=== PATIENT | female | born 1980 | race Caucasian/White ===

== ENCOUNTER 2016-04-18 01:57 | Inpatient (IN) | payer BC, MEDICAID ==
[2016-04-18 03:43] LABS: Hematocrit 30 % (35-47); Hemoglobin 9.7 g/dl (12.0-16.0); Mean Corpuscular HGB Conc 32 g/dl (31-36); Mean Corpuscular Hemoglobin 25 pg (27-31); Mean Corpuscular Volume 78 fL (80-97); Mean Platelet Volume 9 um3 (7.4-10.4); Red Blood Count 3.86 10^6/ul (4.0-5.4); Red Cell Distribution Width 16 % (10.5-15); White Blood Count 10.8 10^3/ul (3.5-10.8)
[2016-04-18 04:04] LABS: Albumin 2.5 g/dL (3.2-5.2); BUN/Creatinine Ratio 16.5 (8-20); Calcium 7.9 mg/dL (8.6-10.3); EGFR African American 106.5 (>60); EGFR Non-African American 82.8 (>60); Globulin 2.9 g/dL (2-4); Potassium 3.8 mmol/L (3.5-5.0); Total Bilirubin 0.3 mg/dL (0.2-1.0); Total Protein 5.4 g/dL (6.4-8.9); Uric Acid 6.8 mg/dL (2.3-6.6)
[2016-04-18] MEDS ORDERED: Labetalol IV* 5 MG/ML 20 ML VIAL ONE (04:43)
[2016-04-18] MEDS ORDERED: Labetalol IV* 5 MG/ML 20 ML VIAL IV PUSH ONE (05:00)
[2016-04-18] MEDS ORDERED: Magnesium Sulf 4 GM/100 ML IV* 4,000 MG/100 ML BAG IVPB ONE (05:14)
[2016-04-18] MEDS ORDERED: OBEPIDURAL* 250 ML ONE (05:17)
[2016-04-18] MEDS ORDERED: MAGNESIUM SULFATE ONE (05:17)
[2016-04-18] MEDS ORDERED: Famotidine TAB* 20 MG PO PRN (05:58)
[2016-04-18] MEDS ORDERED: Sodium Citrate/Citric Acid* 15 ML UDC PO PRN (05:58)
[2016-04-18] MEDS ORDERED: Phenylephrine IV* 40 MCG/ML 10 ML SYRINGE IV PUSH PRN ×2 (05:58)
[2016-04-18] MEDS ORDERED: EPHEDrine (Pressors)* 50 MG/ML VIAL IV PUSH PRN ×2 (05:58)
[2016-04-18] MEDS ORDERED: OBEPIDURAL* 250 ML EPIDURAL SCH (06:00)
[2016-04-18] MEDS ORDERED: Magnesium Sulfate OB PREMIX* 40 GM/1,000 ML BAG IVPB SCH (06:00)
[2016-04-18] MEDS ORDERED: Albuterol HFA INHALER* 8 gm MDI INH PRN (09:48)
[2016-04-18] MEDS ORDERED: Ondansetron INJ* 2 MG/ML VIAL IV ONE ×2 (11:20→21:00)
[2016-04-18] MEDS ORDERED: Ondansetron INJ* 2 MG/ML VIAL ONE (11:23)
[2016-04-18] MEDS ORDERED: Oxytocin in LR* 20 UNITS/1,000 ML BAG IVPB SCH ×2 (15:00→21:00)
[2016-04-18] MEDS ORDERED: oxyCODONE/Acetamin 5/325 MG* TAB PO PRN (20:45)
[2016-04-18] MEDS ORDERED: Witch Hazel PAD* JAR TOPICAL PRN (20:45)
[2016-04-18] MEDS ORDERED: Ibuprofen TAB* 600 MG PO PRN (20:45)
[2016-04-18] MEDS ORDERED: Dibucaine 1% 28.35 GM TUBE PR PRN (20:45)
[2016-04-18] MEDS ORDERED: Glycerin ADULT SUPP PR PRN (20:45)
[2016-04-18] MEDS ORDERED: Tetan/Diph/Pertus SYR(Tdap)* 0.5 ML SYR(BOOSTRIX) use SYR IM ONE (20:45)
[2016-04-18] MEDS ORDERED: Acetaminophen TAB* 325 MG PO PRN (20:45)
[2016-04-18] MEDS ORDERED: Magnesium Sulfate 2 GM IV* 2 GM/50 ML BAG IVPB ONE (20:54)
[2016-04-18] MEDS ORDERED: LEVETIRACETAM 250 MG PO SCH (21:00)
[2016-04-18] MEDS: Ibuprofen ADULT LIQ* 600 MG/30 ML UDC PO PRN (22:09)
[2016-04-19] MEDS: Simethicone TAB* 80 MG TAB.CHEW PO SCH ×2 (00:19→09:22)
[2016-04-19] MEDS: levETIRAcetam IV* 1,000 MG in NS 0.9% 100 ML* 100 ML IVPB SCH ×2 (00:43→11:34)
[2016-04-19] MEDS: Docusate CAP* 100 MG PO SCH ×4 (00:56→21:00)
[2016-04-19 07:47] LABS: Hematocrit 28 % (35-47); Hemoglobin 8.9 g/dl (12.0-16.0); Mean Corpuscular HGB Conc 32 g/dl (31-36); Mean Corpuscular Hemoglobin 25 pg (27-31); Mean Corpuscular Volume 79 fL (80-97); Mean Platelet Volume 9 um3 (7.4-10.4); Red Cell Distribution Width 16 % (10.5-15); White Blood Count 16.7 10^3/ul (3.5-10.8)
[2016-04-19] MEDS ORDERED: Magnesium Sulfate OB PREMIX* 40 GM/1,000 ML BAG IVPB SCH (09:04)
[2016-04-19] MEDS: PTO: Budesonide/Formote 160/4.5(NF) MDI INH SCH ×2 (09:21→21:00)
[2016-04-19] MEDS: Ferrous Gluconate TAB* 324 MG TAB PO SCH ×2 (09:22→21:00)
[2016-04-19] MEDS: MONTELUKAST SODIUM 10 MG PO SCH (09:22)
[2016-04-19] MEDS ORDERED: Metoclopramide IV* 5 MG/ML 2 ML VIAL IV PRN (14:01)
[2016-04-19] MEDS: Ibuprofen ADULT LIQ* 600 MG/30 ML UDC PO PRN (21:33)
[2016-04-19] MEDS ORDERED: NS 0.9% 100 ML* 100 ML ONE (23:16)
[2016-04-20] MEDS: levETIRAcetam IV* 1,000 MG in NS 0.9% 100 ML* 100 ML IVPB SCH ×3 (00:14→10:16)
[2016-04-20 07:26] VITALS: BP 126/80
[2016-04-20] MEDS: Ibuprofen ADULT LIQ* 600 MG/30 ML UDC PO PRN (07:45)
[2016-04-20] MEDS: Docusate CAP* 100 MG PO SCH (08:50)
[2016-04-20] MEDS: Ferrous Gluconate TAB* 324 MG TAB PO SCH ×2 (08:50→09:00)
[2016-04-20] MEDS: MONTELUKAST SODIUM 10 MG PO SCH (08:51)
[2016-04-20] MEDS: PTO: Budesonide/Formote 160/4.5(NF) MDI INH SCH (09:00)
[2016-04-20] MEDS ORDERED: Hydrocortisone 1% CREAM* 30 GM TUBE TOPICAL SCH (13:00)
== END 2016-04-20 14:52 | disposition home or self-care (01) | DRG 560 ==
LOC: MCHOBOUT 01:57 → MCHOB 04:45
PROVIDERS: ADMIT Obstetrics & Gynecology; ATTEND Obstetrics & Gynecology
PROC: 10907ZC Drainage of Amniotic Fluid, Therapeutic from Products of Conception, Via Natural or Artificial Opening (ICD-10-PCS; principal; 2016-04-18)
PROC: 10E0XZZ Delivery of Products of Conception, External Approach (ICD-10-PCS; 2016-04-18)
PROC: 0KQM0ZZ Repair Perineum Muscle, Open Approach (ICD-10-PCS; 2016-04-18)
DX: O14.13 Severe pre-eclampsia, third trimester (principal); O30.043 Twin pregnancy, dichorionic/diamniotic, third trimester; O70.1 Second degree perineal laceration during delivery; O09.523 Supervision of elderly multigravida, third trimester; O99.513 Diseases of the respiratory system complicating pregnancy, third trimester; J45.909 Unspecified asthma, uncomplicated; O32.8XX1 Maternal care for other malpresentation of fetus, fetus 1; Z37.2 Twins, both liveborn; Z3A.34 34 weeks gestation of pregnancy
CPT/HCPCS: 36415; 80053; 83735; 84550; 85025; 86850; 86900; 86901; 88307; A9270-GY; J2405; J2765

== ENCOUNTER 2018-09-09 11:12 | Inpatient (IN) | payer BC, MEDICAID ==
[2018-09-09] MEDS ORDERED: Lidocaine 1% MPF ** 5 ML VIAL ONE (12:12)
[2018-09-09] MEDS ORDERED: Penicillin G Potassium IV* 5,000,000 UNITS in NS 0.9% 100 ML* 100 ML IVPB ONE (12:17)
[2018-09-09] MEDS ORDERED: Buffered Lidocaine 1% SYRIN* 1 ML/SYRINGE INTRADERM ONE (12:17)
[2018-09-09] MEDS ORDERED: Lactated Ringers 1000 ML Bag* 1,000 ML IV ONE (12:17)
--- NOTE | 2018-09-09 12:27 | HP ---
General Information - Reason for Visit Ruptured membranes and contractions. - General Information Maternal Age: 38 Grav: 14 Para: 3 SAB: 10 IEA: 0 Estimated Due Date: 09/30/18 Determined By: Early Ultrasound Gestational Age in Weeks/Days: 37 Maternal Blood Type and Rh: A Positive - Results this Serology/RPR Result: Non-Reactive Rubella Result: Immune HBsAg Result: Negative HIV Result: Negative GBS Culture Result: Positive Past Medical History Delivery History: See Records Pertinent Past Medical History: See Records Past Medical History Comment: Epilepsy Anxiety Asthma Endometriosis Migraine Headaches Pertinent Past Surgical History: See Records Past Surgical History Comment: In Vitro fertilization Dilation/Curettage Diagnostic laparoscopy [place] teeth extraction Pertinent Family History: See Records - Antepartal Records Antepartal Records: Reviewed, Complicated by: - Twin Di/Di Review of Systems Constitutional: Comfortable CV Complaint: No Respiratory: Shortness of Breath: No Gastrointestinal: No Nausea/Vomiting, Normal Bowel Movement Genitourinary: Leaking Fluid, No Dysuria, No Bleeding Musculoskeletal: No Complaint, No Epigastric Pain, Contractions - mild Q 5-7 mins/apart Neurological: No Headache, No Visual Changes Movement: Normal Exam Allergies/Adverse Reactions: Allergies salmeterol [From Serevent] Allergy (Severe, Verified 09/09/18 11:34) See Comment CHEST PAIN [email or web address] [From Accolate] Allergy (Severe, Verified 09/09/18 11:34) See Comment CHEST PAIN Tree Nuts Allergy (Intermediate, Verified 09/09/18 11:34) Swelling fluticasone [From Advair Diskus] Adverse Reaction (Severe, Verified 09/09/18 11: 34) See Comment CHEST PAIN Temp 98.6 BP 138/86 RR 20 P 100's Pox 98 % RA Lab Values - Entire Visit: Laboratory Tests 09/09/18 11:27 Vag Amniotic Fld Detect Positive - Measurements Height: 5 ft 6.5 in Weight: 229 lb Weight in lbs: 229.243474 Body Mass Index (BMI): 36.3 Pre- Weight: 180 lb Weight Gained This : 49 lbs and 0 ozs - Exam Breast: Breast Exam Deferred CVA: No CVA Tenderness Extremities: No Edema Heart: Normal Rhythm/Heart Sounds HEENT: No Significant Findings Lungs: Clear Bilaterally Rectal: Rectal Exam Deferred Reflexes: DTR 2+ Thyroid: No Thyromegaly - Abdominal Exam Abdomen Exam: Non-Tender - Ultrasound/Biophysical Profile Ultrasound Status: Bedside Exam - Twins Cephalic/cephalic presentation Targeted Exam Findings See L&D Outpatient Visit Provider Note for Findings: N/A Effacement: 80% - Unable to asses dilation, cervix rotated towards patients left side Station: -1 Presenting Part: Vertex - determined by ultrasound Membrane Status: SROM Amniotic Fluid Evaluation: Positive ROM Plus Bleeding/Discharge: None EFM Findings - External Monitor Findings Baseline Heart Rate: 150 - reactive baby a and b External Monitor Findings: Accelerations Present, No Pattern of Variable or Late Decelerations Contractions: Mild, < 45 Seconds Assessment/Plan - Assessment Twin at 37 weeks EGA, ruptured membranes, early/prodromal labor GBS positive cultures. - Obstetrical Risk Factors Obstetrical Risk Factors: GBS Positive - Plan Plan: IV Hydration, Antibiotic Prophylaxis, Admit - Anticipate Vaginal Delivery - Date/Time of Admission Date of Admission: 09/09/18 Time of Admission: 12:35
[2018-09-09] MEDS ORDERED: Oxytocin in LR* 20 UNITS/1,000 ML BAG IVPB SCH ×2 (13:00→14:00)
[2018-09-09] MEDS ORDERED: Lactated Ringers 1000 ML Bag* 1,000 ML IV SCH ×2 (13:00→21:00)
[2018-09-09 13:23] LABS: ABS Basophils 0.2 10^3/ul (0-0.2); ABS Eosinophils 0.3 10^3/ul (0-0.6); ABS Lymphocytes 1.8 10^3/ul (1.0-4.8); ABS Monocytes 0.5 10^3/ul (0-0.8); ABS Neutrophils 11.7 10^3/ul (1.5-7.7); Eosinophil % 1.8 %; Hematocrit 27 % (35-47); Hemoglobin 8.8 g/dL (12.0-16.0); Lymphocyte % 12.4 %; Mean Corpuscular HGB Conc 33 g/dL (31-36); Mean Corpuscular Hemoglobin 24 pg (27-31); Mean Corpuscular Volume 73 fL (80-97); Mean Platelet Volume 8.2 fL (7.4-10.4); Nucleated Red Blood Cells % 0.2; Platelet Count 233 10^3/uL (150-450); Red Blood Count 3.68 10^6 /uL (3.70-4.87); Red Cell Distribution Width 18 % (10-15); White Blood Count 14.4 10^3/uL (3.5-10.8)
[2018-09-09] MEDS ORDERED: Oxytocin in LR* 20 UNITS/1,000 ML BAG IVPB ONE (13:40)
[2018-09-09 13:42] LABS: Microcytosis 2+; Polychromasia 2+
[2018-09-09 17:29] LABS: Urine Benzodiazepine Screen Presumptive Positive (None Detect); Urine Opiates Screen None Detected (None Detect)
[2018-09-09] MEDS ORDERED: Penicillin G Potassium IV* 2,500,000 UNITS in NS 0.9% 100 ML* 100 ML IVPB SCH (17:30)
[2018-09-09] MEDS ORDERED: Metoclopramide IV* 5 MG/ML 2 ML VIAL ONE (19:14)
[2018-09-09] MEDS ORDERED: Ondansetron INJ* 2 MG/ML VIAL ONE (19:14)
[2018-09-09] MEDS ORDERED: KETAMINE HCL* 50 MG/ML 10 ML VIAL ONE (19:29)
[2018-09-09] MEDS ORDERED: Midazolam* 1 MG/ML 2 ML VIAL (2 MG) ONE (19:29)
[2018-09-09] MEDS ORDERED: fentaNYL* 50 MCG/ML 2 ML VIAL (100 MCG VIAL) ONE (19:30)
[2018-09-09] MEDS ORDERED: OXYTOCIN* 10 UNITS/ML 1 ML VIAL ONE (19:31)
--- NOTE | 2018-09-09 20:09 | PROCNOTE ---
[facility] OB: Delivery Note - Delivery A Date of : 09/09/18 Time of : 19:20 [place] Sex: Female Weight at : 6 lb 4.919 oz Score 1 Minute: 9 Score 5 Minutes: 9 Gestational Age in Weeks and Days at Delivery: 37 Weeks and 0 Days Delivery Method: Spontaneous Vaginal Labor: Spontaneous - augmented Amniotic Fluid: Meconium Estimated Blood Loss: 600 Anesthesia/Analgesia: None B Date of : 09/09/18 Time of : 19:30 [place] Sex: Female [place] Weight at : 5 lb 7 oz Score 1 Minute: 8 Score 5 Minutes: 9 Gestational Age in Weeks and Days at Delivery: 37 Weeks and 0 Days Delivery Method: Vaginal Breech Labor: Spontaneous - Augmented Amniotic Fluid: Meconium Estimated Blood Loss: 600 Anesthesia/Analgesia: None Delivered By: Angel Newberry - Perineum Perineal Injury: None/Intact, 3rd Degree Extension Perineal Repair: By Delivering Practioner - Risk for Falls Delivered OB Patient- Risk for Falls: Heavy Bleeding, Pre-Existing Condition- See Progress Note - Anemia Fall Risk: Patient is at High Risk for Falls
[2018-09-09] MEDS ORDERED: Ibuprofen TAB* 600 MG PO PRN (20:10)
[2018-09-09] MEDS ORDERED: Acetaminophen TAB* 325 MG PO PRN (20:10)
[2018-09-09] MEDS ORDERED: Dibucaine 1% 28.35 GM TUBE PR PRN (20:10)
[2018-09-09] MEDS ORDERED: Misoprostol TAB* 200 MCG PR ONE (20:10)
[2018-09-09] MEDS ORDERED: Glycerin ADULT SUPP PR PRN (20:10)
[2018-09-09] MEDS ORDERED: Witch Hazel PAD* JAR TOPICAL PRN (20:10)
[2018-09-09] MEDS ORDERED: Lidocaine 1% INJ* 10 MG/ML 30 ML SDV ONE (21:37)
[2018-09-10 06:23] LABS: Hematocrit 23 % (35-47); Hemoglobin 7.6 g/dL (12.0-16.0); Mean Corpuscular HGB Conc 33 g/dL (31-36); Mean Corpuscular Hemoglobin 24 pg (27-31); Mean Corpuscular Volume 74 fL (80-97); Mean Platelet Volume 8.1 fL (7.4-10.4); Platelet Count 211 10^3/uL (150-450); Red Blood Count 3.13 10^6 /uL (3.70-4.87); Red Cell Distribution Width 18 % (10-15); White Blood Count 16.6 10^3/uL (3.5-10.8)
[2018-09-10 06:46] LABS: ABS Basophils 0.1 10^3/ul (0-0.2); ABS Eosinophils 0.2 10^3/ul (0-0.6); ABS Monocytes 0.6 10^3/ul (0-0.8); ABS Neutrophils 13.8 10^3/ul (1.5-7.7); ABS Nucleated RBC 0.1 10^3/ul; Lymphocyte % 11.8 %; Nucleated Red Blood Cells % 0.6
[2018-09-10] MEDS: Docusate CAP* 100 MG PO SCH ×4 (09:34→20:21)
[2018-09-10] MEDS: Ferrous Gluconate TAB* 324 MG TAB PO SCH ×2 (10:12→20:29)
[2018-09-10] MEDS: Simethicone TAB* 80 MG TAB.CHEW PO SCH ×4 (10:15→19:09)
[2018-09-10] MEDS ORDERED: Albuterol HFA INHALER* 8 gm MDI INH PRN (10:33)
[2018-09-10] MEDS ORDERED: Cetirizine* 10 MG TAB PO SCH (10:45)
[2018-09-10] MEDS: SERTRALINE 100 MG PO SCH (14:42)
[2018-09-10] MEDS: LEVETIRACETAM 250 MG PO SCH ×2 (14:43→20:22)
[2018-09-10] MEDS: PRENATAL VITAMIN PO SCH (14:43)
[2018-09-10] MEDS: BUDESONIDE INH SCH (20:28)
[2018-09-10] MEDS: FORMOTE INH SCH (20:28)
[2018-09-10 20:59] VITALS: BP 132/83
[2018-09-11] MEDS: Ferrous Sulfate LIQ* 300 MG/5 ML UDC PO SCH ×2 (03:43→09:36)
[2018-09-11] MEDS ORDERED: MONTELUKAST SODIUM 10 MG PO SCH (09:00)
[2018-09-11] MEDS ORDERED: TRIAMCINOLONE INTRANASAL SCH (09:00)
[2018-09-11] MEDS ORDERED: CETIRIZINE 10 MG PO SCH (09:00)
[2018-09-11] MEDS: Docusate CAP* 100 MG PO SCH (09:32)
[2018-09-11] MEDS: BUDESONIDE INH SCH (09:33)
[2018-09-11] MEDS: FORMOTE INH SCH (09:33)
[2018-09-11] MEDS: SERTRALINE 100 MG PO SCH (09:41)
[2018-09-11] MEDS: LEVETIRACETAM 250 MG PO SCH (09:42)
[2018-09-11] MEDS: PRENATAL VITAMIN PO SCH (09:44)
== END 2018-09-11 14:00 | disposition home or self-care (01) | DRG 542 ==
LOC: MCHOBOUT 11:12 → MCHOB 12:10
PROVIDERS: ADMIT Obstetrics & Gynecology; ATTEND Obstetrics & Gynecology
PROC: 10E0XZZ Delivery of Products of Conception, External Approach (ICD-10-PCS; principal; 2018-09-09)
PROC: 0DQR0ZZ Repair Anal Sphincter, Open Approach (ICD-10-PCS; 2018-09-09)
DX: O99.824 Streptococcus B carrier state complicating childbirth (principal); Z37.2 Twins, both liveborn; O70.20 Third degree perineal laceration during delivery, unspecified; O99.344 Other mental disorders complicating childbirth; F41.9 Anxiety disorder, unspecified; O75.89 Other specified complications of labor and delivery; G40.909 Epilepsy, unspecified, not intractable, without status epilepticus; O99.52 Diseases of the respiratory system complicating childbirth; J45.909 Unspecified asthma, uncomplicated; O77.0 Labor and delivery complicated by meconium in amniotic fluid; O32.8XX0 Maternal care for other malpresentation of fetus, not applicable or unspecified; O72.1 Other immediate postpartum hemorrhage; O90.81 Anemia of the puerperium; D64.9 Anemia, unspecified; Z3A.37 37 weeks gestation of pregnancy
CPT/HCPCS: 36415; 80307; 84112; 85025; 86850; 86900; 86901; 88307; A9270-GY; J2250; J2405; J2540; J2590; J2765; J3010